=== PATIENT | male | born 1990 | race Caucasian/White ===

== ENCOUNTER → 2016-11-08 | Outpatient (CLI) | payer OTHER ==
[2016-11-08] VITALS (10 sets, daily range): BP systolic 123–142; BP diastolic 72–94
[~2016-11-08] MED LIST: ALBUTEROL0.09 MG/A2 IH; AMITRIPTYLINE10 MG PO; ANTIVERT25 MG PO; ATARAX25 MG PO; CITALOPRAM20 MG PO; CITALOPRAM40 MG PO; DELTASONE20 M1 PO; DIAMOX250 MG PO; IBU-8800 MG PO; INHALER; LEVOTHYROXINE0.05 MG PO; MEDROL DOSEPAK4 MG PO; MOTRIN800 MG PO; PREDNICOT20 MG PO; PREDNISONE20 MG PO; PROPRANOLOL HCL60 M1 PO; PROTONIX40 MG PO; SYNTHROID0.025 MG PO; TESSALON PERLE200 MG PO; TOPAMAX100 M1 PO; TOPAMAX100 MG PO; VERAPAMIL HCL80 MG PO; VERAPAMIL240 MG PO; VICODIN 500 MG-1 TAB PO; VIGAMOX 0.5% 3 M3 ML OPH; ZANTAC150 MG PO; ZESTRIL20 MG PO; ZITHROMAX Z PA250 MG PO; ZOFRAN ODT4 MG SL
[2016-11-08 14:44] LABS: CLARITY CLEAR; COLOR COLORLESS; TUBE# 3; VOLUME 6.5 mL
[2016-11-08 14:58] LABS: CSF TOTAL PROTEIN 33.1 mg/dL (15-45)
[2016-11-08 15:04] LABS: CSF RBC < 1000 /uL
[2016-11-08 15:53] LABS: CSF LYMPHOCYTES 93 % (40-80); CSF MONOCYTES 5 % (15-45); CSF NEUTROPHILS 1 % (0-6)
== END | disposition home or self-care (01) ==
LOC: SDC 11:00
PROVIDERS: Psychiatry & Neurology Neurology
DX: G93.2 Benign intracranial hypertension (principal); R06.83 Snoring; H54.3 Unqualified visual loss, both eyes

== ENCOUNTER 2018-11-17 19:25 | Emergency (ER) | payer OTHER ==
[~2018-11-17] VITALS: Ht 185.4 cm; Wt 161.0 kg
[2018-11-17] MEDS ORDERED: PREDNISONE20 M1 PO (19:53)
== END 2018-11-17 21:10 | disposition home or self-care (01) ==
LOC: ED 19:25
DX: J45.901 Unspecified asthma with (acute) exacerbation (principal); J06.9 Acute upper respiratory infection, unspecified; E66.01 Morbid (severe) obesity due to excess calories; Z91.048 Other nonmedicinal substance allergy status; Z79.899 Other long term (current) drug therapy

== ENCOUNTER 2019-01-12 19:20 | Emergency (ER) | payer OTHER ==
[~2019-01-12] VITALS: Ht 182.8 cm; Wt 155.1 kg
[~2019-01-12 19:20] MED LIST changes: +PREDNISONE20 M1 PO
[2019-01-12] MEDS ORDERED: OMNICEF300 MG PO (19:35)
== END 2019-01-12 19:51 | disposition home or self-care (01) ==
LOC: ED 19:20
DX: H66.92 Otitis media, unspecified, left ear (principal); M54.2 Cervicalgia; Z79.899 Other long term (current) drug therapy

== ENCOUNTER → 2019-07-28 | Outpatient (CLI) | payer OTHER ==
[~2019-07-28] MED LIST changes: +OMNICEF300 MG PO
[2019-07-28 09:57] LABS: BASO % 0.4 % (0.0-1.0); EOS # 0.2 10*3/uL (0.0-0.4); EOS % 1.7 % (1.0-4.0); HEMATOCRIT 44.5 % (42.0-52.0); HEMOGLOBIN 14.9 g/dl (14.0-18.0); LYMPH # 2.6 10*3/uL (1.3-4.4); LYMPH % 24.8 % (27.0-41.0); MEAN CELL VOLUME 87.8 fl (80.0-94.0); MEAN CORPUSCULAR HGB 29.4 pg (27.0-31.0); MEAN CORPUSCULAR HGB CONC 33.5 g/dl (33.0-37.0); MEAN PLATELET VOLUME 11.1 fl (9.6-12.3); MONO % 9.4 % (3.0-9.0); NEUT # 6.6 10*3/uL (2.3-7.9); NEUT % 63.4 % (47.0-73.0); PLATELET COUNT AUTOMATED 256 10*3/uL (130-400); RED BLOOD COUNT 5.07 10*6/uL (4.50-5.90); RED CELL DISTRI WIDTH 12.6 % (0-14.5); WHITE BLOOD COUNT 10.5 10*3/uL (4.8-10.8)
[2019-07-28 10:14] LABS: ALBUMIN 3.8 gm/dl (3.1-4.5); ALKALINE PHOSPHATASE 83 U/L (45-117); BUN 21 mg/dl (7-24); CHLORIDE 106 mmol/L (98-107); CREATININE 1.04 mg/dL (0.70-1.30); POTASSIUM 4.3 mmol/L (3.5-5.1); SGOT/AST 12 IU/L (3-35); SGPT/ALT 30 U/L (12-78); SODIUM 141 mmol/L (136-145); TOTAL PROTEIN 7.6 gm/dL (6.4-8.2); VALPROIC ACID (DEPAKENE) 52.9 ug/ml (50-100)
== END | disposition home or self-care (01) ==
LOC: LAB 09:26
PROVIDERS: Psychiatry & Neurology Neurology
DX: Z51.81 Encounter for therapeutic drug level monitoring (principal); G43.719 Chronic migraine without aura, intractable, without status migrainosus

== ENCOUNTER → 2019-11-12 | Outpatient (CLI) | payer OTHER | END | disposition home or self-care (01) | LOC: LAB 10:55 | DX: Z51.81 Encounter for therapeutic drug level monitoring (principal); M54.2 Cervicalgia ==